=== PATIENT | male | born 1985 | race African-American/Black ===

== ENCOUNTER 2021-09-25 08:54 | Emergency (ER) | payer OTHER ==
[~2021-09-25] VITALS: Ht 190.5 cm; Wt 82.6 kg
[2021-09-25 09:50] VITALS: BP 144/88
--- NOTE | 2021-09-25 10:51 | NUR ---
Patient discharged to home in stable condition. Written and verbal after care instructions given. Patient verbalizes understanding of instruction.
== END 2021-09-25 10:53 ==
LOC: ER 08:59
DX: Z20.822 Contact with and (suspected) exposure to COVID-19 (principal); F17.219 Nicotine dependence, cigarettes, with unspecified nicotine-induced disorders
CPT/HCPCS: 87426; 99283; 99406; C9803